=== PATIENT | female | born 1955 | race African-American/Black ===

== ENCOUNTER 2021-09-10 19:15 | Inpatient (IN) | payer MEDICAID ==
[~2021-09-10] VITALS: Ht 160 cm; Wt 82.7 kg
[2021-09-10] MEDS ORDERED: KETOROLAC 60MG/2ML VIAL IM ONE (21:15)
[2021-09-11] VITALS (10 sets, daily range): BP systolic 97–137; BP diastolic 47–63
[2021-09-11] MEDS ORDERED: MORPHINE SULFATE 4 MG/ML CPJ (NOT FOR IM USE) IV ONE (01:45)
[2021-09-11] MEDS ORDERED: IPRATROPIUM BROMIDE (0.02%) 0.5MG/2.5ML NEB HHN STA (02:24)
[2021-09-11] MEDS ORDERED: ALBUTEROL (0.083%) 2.5MG/3ML NEB HHN STA (02:24)
[2021-09-11 03:31] LABS: CLARITY URINE CLEAR (CLEAR); COLOR URINE YELLOW (YELLOW); KETONES URINE NEGATIVE (NEGATIVE); LEUKOCYTE ESTERASE URINE TRACE (NEGATIVE); NITRITE URINE NEGATIVE (NEGATIVE); OCCULT BLOOD URINE NEGATIVE (NEGATIVE); PH URINE >=9.0 (4.5-8.0); PROTEIN URINE NEGATIVE (NEGATIVE); SPECIFIC GRAVITY URINE 1.012 (1.005-1.030); UROBILINOGEN URINE 0.2 E.U./dL (0.2-1.0)
[2021-09-11 04:00] LABS: BASOPHILS % 0.8 % (0.0-2.0); EOSINOPHILS % 0.5 % (0.0-5.0); HEMATOCRIT. 22.7 % (36.0-48.0); LYMPHOCYTES % 17.7 % (20.0-50.0); MEAN CORPUSCULAR HEMOGLOBIN 19.8 pg (28.0-32.0); MEAN CORPUSCULAR VOLUME 66.5 fL (81.0-99.0); MEAN PLATELET VOLUME 7.4 fl (7.4-10.4); PLATELET 291 x1000/uL (130-400); RED BLOOD CELL COUNT 3.41 mill/uL (4.2-5.4); RED CELL DISTRIBUTION WIDTH 21.1 % (11.6-14.6)
[2021-09-11 04:02] LABS: HEMOGLOBIN. 6.7 g/dL (12.0-16.0)
[2021-09-11 04:17] LABS: CHLORIDE 106 mEq/L (98-107)
[2021-09-11 04:41] LABS: PLATELET ESTIMATE NORMAL
[2021-09-11] MEDS ORDERED: NALOXONE HCL 0.4MG/ML VIAL IV PRN (08:45)
[2021-09-11] MEDS: MORPHINE SULFATE 2 MG/ML CPJ (NOT FOR IM USE) IV PRN ×3 (10:14→22:33)
[2021-09-11 10:31] LABS: TOTAL IRON BINDING CAPACITY 420 ug/dL (250-450)
[2021-09-11] MEDS ORDERED: PHEN100C4 PO ×2 (11:05)
[2021-09-11] MEDS: HYDROCODONE/ACETAMINOPHEN 5/325MG TABLET PO PRN (12:35)
[2021-09-11 13:17] LABS: HEMATOCRIT 20.7 % (36.0-48.0); HEMOGLOBIN 6.2 g/dL (12.0-16.0)
[2021-09-11] MEDS: DOCUSATE SODIUM 250MG CAPSULE PO SCH (13:30)
[2021-09-11] MEDS: FERROUS SULFATE 325MG TABLET PO SCH (17:51)
[2021-09-11 19:59] LABS: *COCAINE SCREEN URINE NEGATIVE (NEGATIVE); METHADONE URINE SCREEN NEGATIVE (NEGATIVE); OPIATES URINE SCREEN PRESUMTIVE POSITIVE (NEGATIVE); PHENCYCLIDINE URINE SCREEN NEGATIVE (NEGATIVE)
[2021-09-11 20:00] LABS: *AMPHETAMINES SCREEN URINE NEGATIVE (NEGATIVE); *BARBITURATES SCREEN URINE NEGATIVE (NEGATIVE); *BENZODIAZEPINES SCREEN URINE NEGATIVE (NEGATIVE); CANNABINOID URINE SCREEN NEGATIVE (NEGATIVE)
[2021-09-11] MEDS ORDERED: CEFTRIAXONE 1 G PREMIX 50 ML IV SCH (20:30)
[2021-09-11] MEDS ORDERED: LEVOFLOXACIN 500MG PREMIX 100 ML IV SCH (21:00)
[2021-09-11] MEDS: DIPHENHYDRAMINE 50MG CAPSULE PO PRN (21:38)
[2021-09-11] MEDS: ACETAMINOPHEN 325MG TABLET PO PRN (21:39)
[2021-09-11] MEDS: PHENYTOIN SODIUM EXTENDED 100MG CAPSULE PO SCH (21:39)
[2021-09-11] MEDS: LEVOFLOXACIN 500MG PREMIX 100 ML IV SCH (21:40)
[2021-09-12] VITALS (10 sets, daily range): BP systolic 115–136; BP diastolic 49–68
[2021-09-12] MEDS: MORPHINE SULFATE 2 MG/ML CPJ (NOT FOR IM USE) IV PRN ×5 (03:27→21:07)
[2021-09-12 06:26] LABS: HEMATOCRIT. 32.5 % (36.0-48.0); MEAN CORPUSCULAR HEMOGLOBIN 22.9 pg (28.0-32.0); MEAN PLATELET VOLUME 8.6 fl (7.4-10.4); PLATELET 248 x1000/uL (130-400); RED BLOOD CELL COUNT 4.45 mill/uL (4.2-5.4); RED CELL DISTRIBUTION WIDTH 24.9 % (11.6-14.6)
[2021-09-12 06:28] LABS: CHLORIDE 103 mEq/L (98-107)
[2021-09-12 06:37] LABS: HEMOGLOBIN. 10.2 g/dL (12.0-16.0)
[2021-09-12] MEDS: DOCUSATE SODIUM 250MG CAPSULE PO SCH (10:09)
[2021-09-12] MEDS: FERROUS SULFATE 325MG TABLET PO SCH ×3 (10:10→18:19)
[2021-09-12] MEDS: HYDROCODONE/ACETAMINOPHEN 5/325MG TABLET PO PRN ×2 (11:30→15:43)
[2021-09-12 16:35] LABS: PLATELET ESTIMATE NORMAL
[2021-09-12] MEDS: ASCORBIC ACID 250 MG TABLET PO SCH (16:50)
[2021-09-12] MEDS: ACETAMINOPHEN 325MG TABLET PO PRN (19:50)
[2021-09-12] MEDS: LEVOFLOXACIN 500MG PREMIX 100 ML IV SCH (21:03)
[2021-09-12] MEDS: PHENYTOIN SODIUM EXTENDED 100MG CAPSULE PO SCH (21:04)
[2021-09-13] VITALS: BP 112/58
[2021-09-13] MEDS: HYDROCODONE/ACETAMINOPHEN 5/325MG TABLET PO PRN ×4 (00:21→22:23)
[2021-09-13 04:00] VITALS: BP 127/52
[2021-09-13] MEDS: MORPHINE SULFATE 2 MG/ML CPJ (NOT FOR IM USE) IV PRN ×5 (04:14→21:37)
[2021-09-13 06:30] LABS: INR 1.1; PROTHROMBIN TIME 11.9 sec (9.6-11.0)
[2021-09-13 06:34] LABS: CHLORIDE 100 mEq/L (98-107)
[2021-09-13 06:40] LABS: BASOPHILS % 0.6 % (0.0-2.0); EOSINOPHILS % 2.4 % (0.0-5.0); HEMOGLOBIN. 10.7 g/dL (12.0-16.0); LYMPHOCYTES % 10.4 % (20.0-50.0); MEAN CORPUSCULAR VOLUME 72.6 fL (81.0-99.0); MEAN PLATELET VOLUME 7.4 fl (7.4-10.4); MONOCYTES % 14.6 % (2.0-8.0); PLATELET 290 x1000/uL (130-400); RED BLOOD CELL COUNT 4.68 mill/uL (4.2-5.4); RED CELL DISTRIBUTION WIDTH 24.9 % (11.6-14.6)
[2021-09-13 06:54] LABS: FOLIC ACID (FOLATE) SERUM 18.2 ng/mL (>5.38)
[2021-09-13 08:00] VITALS: BP 118/55
[2021-09-13] MEDS: ASCORBIC ACID 250 MG TABLET PO SCH (08:41)
[2021-09-13] MEDS: FERROUS SULFATE 325MG TABLET PO SCH ×3 (08:41→17:28)
[2021-09-13] MEDS: DOCUSATE SODIUM 250MG CAPSULE PO SCH (08:42)
[2021-09-13] MEDS: DIPHENHYDRAMINE 50MG CAPSULE PO PRN (11:49)
[2021-09-13 12:00] VITALS: BP 114/60
[2021-09-13 16:00] VITALS: BP 122/46
[2021-09-13] MEDS: ACETAMINOPHEN 325MG TABLET PO PRN (18:01)
[2021-09-13 18:43] LABS: PLATELET ESTIMATE NORMAL
[2021-09-13 20:00] VITALS: BP 105/66
[2021-09-13] MEDS: LEVOFLOXACIN 500MG PREMIX 100 ML IV SCH (20:17)
[2021-09-13] MEDS: PHENYTOIN SODIUM EXTENDED 100MG CAPSULE PO SCH (20:17)
[2021-09-14] VITALS: BP 132/57
[2021-09-14] MEDS: MORPHINE SULFATE 2 MG/ML CPJ (NOT FOR IM USE) IV PRN ×3 (01:40→17:31)
[2021-09-14 04:00] VITALS: BP 135/61
[2021-09-14] MEDS ORDERED: LIDOCAINE HCL/EPINEPHRINE 1%-EPI 1:100,000 20 ML VIAL ONE (06:14)
[2021-09-14] MEDS ORDERED: ROPIVACAINE HCL 10MG/ML 20 ML VIAL EPI ONE ×2 (06:15→11:11)
[2021-09-14] MEDS ORDERED: KETOROLAC 30MG/ML VIAL ONE (06:15)
[2021-09-14] MEDS ORDERED: MORPHINE SULFATE/PF 1MG/ML 10ML AMP ONE (06:15)
[2021-09-14] MEDS ORDERED: VANCOMYCIN HCL 1 GM/VIAL ONE (06:16)
[2021-09-14] MEDS ORDERED: EPINEPHRINE 1:1000 1 MG/ML AMP ONE (06:16)
[2021-09-14] MEDS ORDERED: POLYMYXIN B SULFATE 500000 UNITS/VIAL ONE (06:16)
[2021-09-14] MEDS: FERROUS SULFATE 325MG TABLET PO SCH ×3 (06:58→17:30)
[2021-09-14] MEDS ORDERED: TRANEXAMIC ACID 1,000 MG in SODIUM CHLORIDE 0.9% 100 ML IV ONE ×2 (07:00→08:00)
[2021-09-14 07:07] LABS: CHLORIDE 100 mEq/L (98-107)
[2021-09-14 07:08] LABS: HEMATOCRIT. 34.8 % (36.0-48.0); HEMOGLOBIN. 10.8 g/dL (12.0-16.0); MEAN CORPUSCULAR HEMOGLOBIN 22.8 pg (28.0-32.0); MEAN CORPUSCULAR VOLUME 73.2 fL (81.0-99.0); MEAN PLATELET VOLUME 7.5 fl (7.4-10.4); PLATELET 359 x1000/uL (130-400); RED BLOOD CELL COUNT 4.75 mill/uL (4.2-5.4); RED CELL DISTRIBUTION WIDTH 25.3 % (11.6-14.6)
[2021-09-14 08:00] VITALS: BP 130/60
[2021-09-14] MEDS: DOCUSATE SODIUM 250MG CAPSULE PO SCH (08:38)
[2021-09-14] MEDS: ASCORBIC ACID 250 MG TABLET PO SCH (08:39)
[2021-09-14] MEDS ORDERED: LEVOFLOXACIN 500MG PREMIX 100 ML IV ONE (10:02)
[2021-09-14] MEDS ORDERED: NEOSTIGMINE METHYLSULFATE 1MG/ML 10 ML VIAL ONE (10:34)
[2021-09-14] MEDS ORDERED: PROPOFOL 200MG/20ML VIAL IV ONE (10:34)
[2021-09-14] MEDS ORDERED: FENTANYL CITRATE/PF 50MCG/ML 2ML VIAL ONE ×2 (10:34→10:43)
[2021-09-14] MEDS ORDERED: MIDAZOLAM HCL 2 MG/2 ML VIAL ONE ×2 (10:34→10:43)
[2021-09-14] MEDS ORDERED: GLYCOPYRROLATE 0.2 MG/ML 2ML VIAL ONE ×2 (10:35→12:02)
[2021-09-14] MEDS ORDERED: ONDANSETRON HCL 4MG/2ML INJ ONE (10:42)
[2021-09-14] MEDS ORDERED: DEXAMETHASONE 4MG/ML 1ML VIAL ONE (10:42)
[2021-09-14] MEDS ORDERED: ROCURONIUM BROMIDE 10MG/ML VIAL 5ML IV ONE (10:56)
[2021-09-14] MEDS ORDERED: HYDROMORPHONE HCL/PF 2MG/ML (OR) ONE (11:12)
[2021-09-14] MEDS ORDERED: LABETALOL 5MG/ML SYR 20 MG/4 ML SYRINGE IV PRN (11:15)
[2021-09-14] MEDS ORDERED: HYDROMORPHONE HCL/PF 2MG/ML CPJ IV PRN (11:15)
[2021-09-14] MEDS ORDERED: MEPERIDINE HCL/PF 25MG/ML CPJ IV PRN (11:15)
[2021-09-14] MEDS ORDERED: ONDANSETRON HCL 4MG/2ML INJ IV PRN (11:15)
[2021-09-14] MEDS ORDERED: KETOROLAC 30MG/ML VIAL IV PRN (12:00)
[2021-09-14] MEDS ORDERED: CEFAZOLIN 1000MG PREMIX 50 ML IV SCH ×2 (12:00→13:00)
[2021-09-14] MEDS ORDERED: ACETAMINOPHEN 325MG TABLET PO PRN (12:00)
[2021-09-14 13:45] VITALS: BP 138/67
[2021-09-14 14:54] LABS: PLATELET ESTIMATE NORMAL
[2021-09-14 16:00] VITALS: BP 125/60
[2021-09-14] MEDS: ONDANSETRON HCL 4MG/2ML INJ IV PRN (17:31)
[2021-09-14] MEDS: CLINDAMYCIN IN 0.9 % SOD CHLOR 50 ML IV SCH (17:32)
[2021-09-14 20:00] VITALS: BP 120/44
[2021-09-14] MEDS: PHENYTOIN SODIUM EXTENDED 100MG CAPSULE PO SCH (21:36)
[2021-09-14] MEDS: LEVOFLOXACIN 500MG PREMIX 100 ML IV SCH (21:36)
[2021-09-15] VITALS: BP 105/47
[2021-09-15] MEDS: CLINDAMYCIN IN 0.9 % SOD CHLOR 50 ML IV SCH ×3 (01:55→17:41)
[2021-09-15] MEDS: MORPHINE SULFATE 2 MG/ML CPJ (NOT FOR IM USE) IV PRN ×6 (03:48→22:04)
[2021-09-15 04:00] VITALS: BP 108/57
[2021-09-15 07:24] LABS: HEMATOCRIT. 29.5 % (36.0-48.0); HEMOGLOBIN. 9.3 g/dL (12.0-16.0); MEAN CORPUSCULAR HEMOGLOBIN 22.8 pg (28.0-32.0); MEAN CORPUSCULAR VOLUME 72.1 fL (81.0-99.0); MEAN PLATELET VOLUME 7.2 fl (7.4-10.4); PLATELET 322 x1000/uL (130-400)
[2021-09-15 07:29] LABS: CHLORIDE 101 mEq/L (98-107)
[2021-09-15 08:00] VITALS: BP 95/53
[2021-09-15] MEDS: DOCUSATE SODIUM 250MG CAPSULE PO SCH (09:16)
[2021-09-15] MEDS: ASCORBIC ACID 250 MG TABLET PO SCH (09:17)
[2021-09-15] MEDS: FERROUS SULFATE 325MG TABLET PO SCH ×3 (09:17→17:41)
[2021-09-15 12:00] VITALS: BP 114/51
[2021-09-15 14:41] LABS: PLATELET ESTIMATE NORMAL
[2021-09-15 16:00] VITALS: BP 95/53
[2021-09-15 20:00] VITALS: BP 121/59
[2021-09-15] MEDS: PHENYTOIN SODIUM EXTENDED 100MG CAPSULE PO SCH (20:56)
[2021-09-15] MEDS: LEVOFLOXACIN 500MG PREMIX 100 ML IV SCH (20:57)
[2021-09-15] MEDS: HYDROCODONE/ACETAMINOPHEN 10/325MG TABLET PO PRN (20:57)
[2021-09-16] VITALS: BP 116/64
[2021-09-16] MEDS: HYDROCODONE/ACETAMINOPHEN 10/325MG TABLET PO PRN ×5 (01:21→21:57)
[2021-09-16] MEDS: CLINDAMYCIN IN 0.9 % SOD CHLOR 50 ML IV SCH ×3 (02:22→17:09)
[2021-09-16] MEDS: MORPHINE SULFATE 2 MG/ML CPJ (NOT FOR IM USE) IV PRN ×2 (02:23→06:34)
[2021-09-16 04:00] VITALS: BP 127/54
[2021-09-16] MEDS: ONDANSETRON HCL 4MG/2ML INJ IV PRN (05:58)
[2021-09-16 08:00] VITALS: BP 118/43
[2021-09-16] MEDS: ASCORBIC ACID 250 MG TABLET PO SCH (09:08)
[2021-09-16] MEDS: FERROUS SULFATE 325MG TABLET PO SCH ×3 (09:08→17:09)
[2021-09-16] MEDS: DOCUSATE SODIUM 250MG CAPSULE PO SCH (09:09)
[2021-09-16] MEDS: HYDROCODONE/ACETAMINOPHEN 5/325MG TABLET PO PRN (09:16)
[2021-09-16 09:51] LABS: HEMATOCRIT. 28.1 % (36.0-48.0); HEMOGLOBIN. 8.8 g/dL (12.0-16.0); MEAN CORPUSCULAR VOLUME 73.7 fL (81.0-99.0); MEAN PLATELET VOLUME 6.9 fl (7.4-10.4); PLATELET 284 x1000/uL (130-400); RED BLOOD CELL COUNT 3.82 mill/uL (4.2-5.4); RED CELL DISTRIBUTION WIDTH 26.3 % (11.6-14.6)
[2021-09-16 10:05] LABS: CHLORIDE 103 mEq/L (98-107)
[2021-09-16 10:47] LABS: PLATELET ESTIMATE NORMAL
[2021-09-16 12:00] VITALS: BP 115/48
[2021-09-16 16:00] VITALS: BP 104/35
[2021-09-16 20:00] VITALS: BP 118/52
[2021-09-16] MEDS: PHENYTOIN SODIUM EXTENDED 100MG CAPSULE PO SCH (21:57)
[2021-09-17] VITALS: BP 112/52
[2021-09-17] MEDS: HYDROCODONE/ACETAMINOPHEN 10/325MG TABLET PO PRN ×4 (01:24→17:03)
[2021-09-17 04:00] VITALS: BP 114/44
[2021-09-17 06:05] LABS: BASOPHILS % 0.7 % (0.0-2.0); EOSINOPHILS % 3.4 % (0.0-5.0); HEMATOCRIT. 26.6 % (36.0-48.0); HEMOGLOBIN. 8.5 g/dL (12.0-16.0); LYMPHOCYTES % 12.5 % (20.0-50.0); MEAN CORPUSCULAR HEMOGLOBIN 23.2 pg (28.0-32.0); MEAN CORPUSCULAR VOLUME 72.7 fL (81.0-99.0); MEAN PLATELET VOLUME 7.2 fl (7.4-10.4); MONOCYTES % 13.9 % (2.0-8.0); NEUTROPHILS % 69.5 % (40.0-76.0); PLATELET 310 x1000/uL (130-400); RED BLOOD CELL COUNT 3.66 mill/uL (4.2-5.4); RED CELL DISTRIBUTION WIDTH 26.2 % (11.6-14.6)
[2021-09-17 06:49] LABS: CHLORIDE 104 mEq/L (98-107)
[2021-09-17 08:30] VITALS: BP 116/50
[2021-09-17] MEDS: FERROUS SULFATE 325MG TABLET PO SCH ×3 (09:28→17:55)
[2021-09-17] MEDS: DOCUSATE SODIUM 250MG CAPSULE PO SCH (09:28)
[2021-09-17] MEDS: ASCORBIC ACID 250 MG TABLET PO SCH (09:28)
[2021-09-17] MEDS ORDERED: DOCU-138 MT (11:57)
[2021-09-17] MEDS ORDERED: FERR-71 MT (11:57)
[2021-09-17] MEDS ORDERED: HYDR-4009 MT (11:57)
[2021-09-17 12:10] VITALS: BP 114/58
[2021-09-17 16:00] VITALS: BP 110/50
[2021-09-17 20:00] VITALS: BP 99/39
[2021-09-17] MEDS: PHENYTOIN SODIUM EXTENDED 100MG CAPSULE PO SCH (21:02)
[2021-09-17] MEDS: HYDROCODONE/ACETAMINOPHEN 5/325MG TABLET PO PRN (21:03)
[2021-09-18 00:16] VITALS: BP 112/52
[2021-09-18] MEDS: HYDROCODONE/ACETAMINOPHEN 5/325MG TABLET PO PRN ×4 (00:16→15:24)
[2021-09-18 04:00] VITALS: BP 120/80
[2021-09-18 08:00] VITALS: BP 103/46
[2021-09-18] MEDS: DOCUSATE SODIUM 250MG CAPSULE PO SCH (09:04)
[2021-09-18] MEDS: FERROUS SULFATE 325MG TABLET PO SCH ×3 (09:05→17:44)
[2021-09-18] MEDS: ASCORBIC ACID 250 MG TABLET PO SCH (09:05)
[2021-09-18] MEDS ORDERED: LACTULOSE 20G/30ML UDC PO NR (11:15)
[2021-09-18] MEDS ORDERED: NALOXONE HCL 0.4MG/ML VIAL IV PRN (11:15)
[2021-09-18 12:02] VITALS: BP 110/53
[2021-09-18 15:21] VITALS: BP 131/51
[2021-09-18 20:00] VITALS: BP 113/50
[2021-09-18] MEDS: HYDROCODONE/ACETAMINOPHEN 10/325MG TABLET PO PRN (20:52)
[2021-09-18] MEDS: PANTOPRAZOLE SODIUM 40 MG/VIAL IV SCH (20:54)
[2021-09-18] MEDS: SENNOSIDES/DOCUSATE SOD 8.6/50MG TABLET PO SCH (20:54)
[2021-09-18] MEDS: PHENYTOIN SODIUM EXTENDED 100MG CAPSULE PO SCH (20:54)
[2021-09-19] VITALS (7 sets, daily range): BP systolic 104–121; BP diastolic 46–55
[2021-09-19] MEDS: HYDROCODONE/ACETAMINOPHEN 10/325MG TABLET PO PRN ×3 (00:43→21:09)
[2021-09-19 06:31] LABS: INR 1.1; PROTHROMBIN TIME 12.1 sec (9.6-11.0)
[2021-09-19 06:42] LABS: BASOPHILS % 1.1 % (0.0-2.0); CHLORIDE 99 mEq/L (98-107); EOSINOPHILS % 3.6 % (0.0-5.0); HEMATOCRIT. 27.3 % (36.0-48.0); HEMOGLOBIN. 8.7 g/dL (12.0-16.0); LYMPHOCYTES % 18.5 % (20.0-50.0); MEAN CORPUSCULAR HEMOGLOBIN 23.3 pg (28.0-32.0); MEAN CORPUSCULAR VOLUME 72.8 fL (81.0-99.0); MEAN PLATELET VOLUME 7.1 fl (7.4-10.4); MONOCYTES % 11.7 % (2.0-8.0); NEUTROPHILS % 65.1 % (40.0-76.0); PLATELET 398 x1000/uL (130-400); RED BLOOD CELL COUNT 3.75 mill/uL (4.2-5.4); RED CELL DISTRIBUTION WIDTH 26.1 % (11.6-14.6)
[2021-09-19] MEDS: DOCUSATE SODIUM 250MG CAPSULE PO SCH ×2 (09:00→09:28)
[2021-09-19] MEDS: HYDROCODONE/ACETAMINOPHEN 5/325MG TABLET PO PRN (09:27)
[2021-09-19] MEDS: ASCORBIC ACID 250 MG TABLET PO SCH (09:28)
[2021-09-19] MEDS: FERROUS SULFATE 325MG TABLET PO SCH ×3 (09:28→17:50)
[2021-09-19] MEDS: PANTOPRAZOLE SODIUM 40 MG/VIAL IV SCH ×2 (09:28→20:58)
[2021-09-19] MEDS ORDERED: MIDAZOLAM HCL 5 MG/5 ML VIAL ONE (16:19)
[2021-09-19] MEDS ORDERED: FENTANYL CITRATE/PF 50MCG/ML 2ML VIAL ONE (16:20)
[2021-09-19] MEDS ORDERED: MIDAZOLAM HCL 5 MG/5 ML VIAL IV PRN (16:25)
[2021-09-19] MEDS ORDERED: FENTANYL CITRATE/PF 50MCG/ML 2ML VIAL IV PRN (16:26)
[2021-09-19] MEDS: SENNOSIDES/DOCUSATE SOD 8.6/50MG TABLET PO SCH (20:58)
[2021-09-19] MEDS: PHENYTOIN SODIUM EXTENDED 100MG CAPSULE PO SCH (20:58)
[2021-09-20] VITALS (7 sets, daily range): BP systolic 102–116; BP diastolic 43–57
[2021-09-20] MEDS: HYDROCODONE/ACETAMINOPHEN 10/325MG TABLET PO PRN (01:29)
[2021-09-20] MEDS: DOCUSATE SODIUM 250MG CAPSULE PO SCH (08:26)
[2021-09-20] MEDS: ASCORBIC ACID 250 MG TABLET PO SCH (08:26)
[2021-09-20] MEDS: FERROUS SULFATE 325MG TABLET PO SCH ×3 (08:26→18:55)
[2021-09-20] MEDS: PANTOPRAZOLE SODIUM 40 MG/VIAL IV SCH (08:27)
[2021-09-20] MEDS: HYDROCODONE/ACETAMINOPHEN 5/325MG TABLET PO PRN ×3 (08:27→20:08)
== END 2021-09-20 20:50 | DRG 323 ==
LOC: ER 19:15 → MICUSO 09-11 03:10 → EDBEDREQTM 09-11 03:16 → EDBEDREQ 09-11 03:16 → 6EST 09-11 08:39 → 6WST 09-11 09:42
PROVIDERS: ADMIT Internal Medicine; ATTEND Internal Medicine
PROC: 30233N1 Transfusion of Nonautologous Red Blood Cells into Peripheral Vein, Percutaneous Approach (ICD-10-PCS; 2021-09-11)
PROC: 0SRR0JA Replacement of Right Hip Joint, Femoral Surface with Synthetic Substitute, Uncemented, Open Approach (ICD-10-PCS; principal; 2021-09-15)
PROC: 0DB78ZX Excision of Stomach, Pylorus, Via Natural or Artificial Opening Endoscopic, Diagnostic (ICD-10-PCS; 2021-09-19)
DX: S72.011A Unspecified intracapsular fracture of right femur, initial encounter for closed fracture (principal); E44.1 Mild protein-calorie malnutrition; Z79.891 Long term (current) use of opiate analgesic; F17.210 Nicotine dependence, cigarettes, uncomplicated; D50.9 Iron deficiency anemia, unspecified; F13.10 Sedative, hypnotic or anxiolytic abuse, uncomplicated; G40.909 Epilepsy, unspecified, not intractable, without status epilepticus; J44.9 Chronic obstructive pulmonary disease, unspecified; K25.9 Gastric ulcer, unspecified as acute or chronic, without hemorrhage or perforation; K44.9 Diaphragmatic hernia without obstruction or gangrene; K29.70 Gastritis, unspecified, without bleeding; J98.11 Atelectasis; Z20.822 Contact with and (suspected) exposure to COVID-19; W18.39XA Other fall on same level, initial encounter; I10 Essential (primary) hypertension; Z88.0 Allergy status to penicillin; Z79.899 Other long term (current) drug therapy; Z68.32 Body mass index [BMI] 32.0-32.9, adult; Z71.6 Tobacco abuse counseling; Z90.49 Acquired absence of other specified parts of digestive tract; Z91.19 Patient's noncompliance with other medical treatment and regimen; Y93.89 Activity, other specified; Y92.89 Other specified places as the place of occurrence of the external cause; Y99.8 Other external cause status
CPT/HCPCS: 36415; 71045; 72170; 73502; 80048; 80053; 80305; 81003; 82270; 82607; 82728; 82746; 83540; 83550; 83880; 84484; 85014; 85018; 85025; 85044; 86850; 86900; 86920; 87426; 88304; 88305; 88311; 88312; 88313; 93005; 93306; 94640; 97110; 97116; 97162; 97165; 97530; 97535; 99152; 99285; C1776; C1893; C9113; G0378; J0690; J1100; J1170; J1885; J1956; J2250; J2270; J2274; J2405; J2704; J2710; J2795; J3010; J3370; J3490; J7040; J7050; P9016; Q0163; A4315; G0500